=== PATIENT | female | born 2000 | race Two or more races ===

== ENCOUNTER 2021-12-10 15:27 | Emergency (ER) | payer OTHER ==
[~2021-12-10] VITALS: Ht 165.1 cm; Wt 107.3 kg
[2021-12-10 15:49] VITALS: BP 119/89
== END 2021-12-10 16:42 | disposition home or self-care (01) ==
LOC: ER 15:27
DX: M25.521 Pain in right elbow (principal); M54.2 Cervicalgia; V87.7XXA Person injured in collision between other specified motor vehicles (traffic), initial encounter; Y93.89 Activity, other specified; Y92.89 Other specified places as the place of occurrence of the external cause; Y99.8 Other external cause status
CPT/HCPCS: 99282

== ENCOUNTER 2022-07-14 11:06 | Emergency (ER) | payer OTHER ==
[~2022-07-14] VITALS: Ht 165.1 cm; Wt 104.5 kg
[2022-07-14 11:11] VITALS: BP 122/73
[2022-07-14] MEDS: TETanus/Pertussis (Acell)/Diphther VAC/PF (Tdap-Adult) 0.5ml syringe IMVAC ONE (13:12)
== END 2022-07-14 13:22 | disposition home or self-care (01) ==
LOC: ER 11:06
DX: S61.215A Laceration without foreign body of left ring finger without damage to nail, initial encounter (principal); Z20.3 Contact with and (suspected) exposure to rabies; W45.8XXA Other foreign body or object entering through skin, initial encounter; Y93.89 Activity, other specified; Y92.89 Other specified places as the place of occurrence of the external cause; Y99.8 Other external cause status
CPT/HCPCS: 12002; 90715; 99283; A6449